=== PATIENT | male | born 1965 | race Caucasian/White ===

== ENCOUNTER 2020-06-05 10:48 | Inpatient (IN) | payer OTHER ==
[~2020-06-05] VITALS: Ht 177.8 cm; Wt 86.8 kg
[2020-06-05] MEDS ORDERED: ETOMIDATE 20 MG/10 ML IVPush ONE (11:00)
[2020-06-05] MEDS ORDERED: SUCCINYLCHOLINE 20 MG/ML, 10ML IVPush ONE (11:00)
[2020-06-05] MEDS ORDERED: SODIUM CHLORIDE 0.9% 1,000ML IVBOLUS ONE (11:00)
[2020-06-05 11:21] LABS: BASOPHILS # (AUTO) 0.08 x10^3/uL (0-0.1); BASOPHILS % (AUTO) 1 % (0-1); EOSINOPHILS # (AUTO) 0.14 x10^3/uL (0-0.4); EOSINOPHILS % (AUTO) 2 % (1-7); LYMPHOCYTES # (AUTO) 4.47 x10^3/uL (1-3.4); LYMPHOCYTES % (AUTO) 49 % (22-44); MD NO; MEAN CORPUSCULAR HEMOGLOBIN 31.8 pg (27.5-34.5); MEAN CORPUSCULAR HGB CONC 33.3 g/dL (33.2-36.2); MEAN CORPUSCULAR VOLUME 95.4 fL (81-97); MEAN PLATELET VOLUME 7.6 fL (7.4-10.4); MONOCYTES # (AUTO) 0.67 x10^3/uL (0.2-0.8); MONOCYTES % (AUTO) 7 % (2-9); NEUTROPHILS # (AUTO) 3.85 x10^3/uL (1.8-6.8); NEUTROPHILS % (AUTO) 42 % (42-75); PLATELET COUNT 336 x10^3/uL (130-400); RED BLOOD COUNT 4.83 x10^6/uL (4.38-5.82); RED CELL DISTRIBUTION WIDTH 14.2 % (9.4-14.8)
[2020-06-05] MEDS ORDERED: PROPOFOL 10 MG/ML, 20ML IVPush ONE (11:30)
[2020-06-05 11:31] LABS: CHLORIDE 108 mmol/L (98-107)
[2020-06-05] MEDS: PROPOFOL 100 ML IV PRN ×4 (11:35→23:14)
[2020-06-05] MEDS ORDERED: DEXAMETHASONE 4 MG/ML, 5ML ONE (11:36)
[2020-06-05 11:45] LABS: ALANINE AMINOTRANSFERASE 83 U/L (12-78); ALBUMIN 3.7 g/dL (3.4-5.0); ALKALINE PHOSPHATASE 91 U/L (45-117); ANION GAP 12 mmol/L (5-15); BILIRUBIN,TOTAL 0.4 mg/dL (0.2-1.0); CREATININE 1.32 mg/dL (0.7-1.3); TOTAL PROTEIN 7.8 g/dL (6.4-8.2)
[2020-06-05] MEDS ORDERED: DEXAMETHASONE 4 MG/ML, 1ML PO ONE (12:00)
[2020-06-05] MEDS ORDERED: LABETALOL 5MG/ML, 20ML IVPush ONE (12:00)
[2020-06-05] MEDS ORDERED: MIDAZOLAM 1 MG/ML, 5ML IVPush ONE (12:00)
[2020-06-05 12:03] LABS: FREE T4 (FREE THYROXINE) 1.38 ng/dL (0.76-1.46)
[2020-06-05] MEDS ORDERED: POTASSIUM CHLORIDE 40 MEQ in SODIUM CHLORIDE 0.9% 500 ML IV ONE (12:15)
--- NOTE | 2020-06-05 12:19 | NUR ---
JOCELYNE BROTHER CALLED. PER BROTHER PT HAS LONG HX OF ETOH ABUSE. EMPTY FOZIA CASTILLO BOTTLES FOUND AT HOUSE. 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 BROTHER IS POINT OF CONTACT FOR FAMILY. NUMBER IS [phone]
--- NOTE | 2020-06-05 12:27 | NUR ---
PER PT BP 145/103 HOLD LABETALOL AT THIS TIME
[2020-06-05] MEDS ORDERED: OMNIPAQUE 350 MG/ML, 100ML BOTTLE ONE (12:58)
--- NOTE | 2020-06-05 13:43 | NUR ---
SEE ATTACHED VITAL SIGNS PRINT OUT FOR VITAL SIGNS Q 5 MIN
--- NOTE | 2020-06-05 13:44 | NUR ---
SUMMARY OF EVENTS. PT PRESENTED TO ER BY OMAR. PT WAS FOUND BY BROTHER SITTING ON THE FLOOR AND HAD APEARED TO HAVE FALLEN AT SOMEPOINT. PT IS NON-VERBAL FOR EMS BUT WILL FOLLOW SOME COMMANDS. DECISION TO INTUBATE WAS MADE BY MD DUE TO AUDIBLE UPPER AIRWAY STRIDOR AND PT INABILITY TO PROTECT OWN AIRWAY. 1119 20 MG OF ETOMITDATE GIVEN IV FOLLOWED BY 100 MG SUCCINOCOLINE. PT INTUBATED AT 1120 7.5 TUBE THAT IS 25 AT LIPS. RT INITIAL SETTINGS OF TV 550, PEEP 5, RR 12, AND FIO2 OF 100%. PT GIVEN 100 MG OF PROPOFOL AT 1130 PER MD VERBAL AND PROPOFOL DRIP INITIATED. SEE IV SPREADSHEET FOR TITRATION. 1141 10 MG OF DECADRON GIVEN IV. PT REMAINS DIFFICULT TO SEDATE AND VERBAL ORDER FOR 5 MG RECIEVED AND GIVEN 1148. PT TAKEN TO CT WITH RT AT SIDE. UPON RETURNING RT TITRATED FIO2 DOWN TO 75%
[2020-06-05 13:53] LABS: MICROSCOPIC NOT IND
[2020-06-05 14:03] LABS: AMPHETAMINE SCREEN, URINE Negative (Negative); BARBITURATE SCREEN, URINE Negative (Negative); BENZODIAZEPINE SCREEN, URINE Negative (Negative); CANNABINOID SCREEN, URINE Negative (Negative); COCAINE SCREEN, URINE Positive (Negative); METHADONE SCREEN, URINE Negative (Negative); OPIATE SCREEN, URINE Negative (Negative)
--- NOTE | 2020-06-05 14:14 | NUR ---
BROTHER CALLED FOR UPDATE. BROTHER HAS BEEN TALKING TO FAMILY AND STATED THIS HAS HAPPENED PREVIOUSLY AND PT WILL LEAVE SOON GIVEN AN OPPORTUNITY.
[2020-06-05] MEDS ORDERED: THIAMINE 100 MG in SODIUM CHLORIDE 0.9% 50 ML IV SCH (15:00)
[2020-06-05] MEDS ORDERED: FOLIC ACID 1 MG TABLET PO SCH (15:00)
[2020-06-05] MEDS ORDERED: POTASSIUM CHLORIDE 10% 40 MEQ/30 ML UDC PO ONE (16:00)
[2020-06-05] MEDS ORDERED: CHLORDIAZEPOXIDE 25 MG CAPSULE PO ONE (16:00)
[2020-06-05] MEDS: MIDAZOLAM 1 MG/ML, 2ML IVPush PRN ×3 (16:16→23:14)
[2020-06-05] MEDS ORDERED: DEXTROSE 4 GM TAB.CHEW PO PRN (16:30)
[2020-06-05] MEDS ORDERED: DEXTROSE 50%, 50ML SYRINGE IVPush PRN (16:30)
[2020-06-05] MEDS ORDERED: GLUCAGON 1 MG IM PRN (16:30)
[2020-06-05] MEDS ORDERED: PHARMACY MAY ADJ FOR RENAL FX MC SCH (16:30)
[2020-06-05 17:13] LABS: AMPHETAMINE SCREEN, URINE Negative (Negative); BARBITURATE SCREEN, URINE Negative (Negative); BENZODIAZEPINE SCREEN, URINE Positive (Negative); CANNABINOID SCREEN, URINE Negative (Negative); COCAINE SCREEN, URINE Positive (Negative); METHADONE SCREEN, URINE Negative (Negative); OPIATE SCREEN, URINE Negative (Negative)
[2020-06-05] MEDS: POTASSIUM CHLORIDE 20 MEQ, MAGNESIUM SULFATE 1 GM, THIAMINE 200 MG, FOLIC ACID 1 MG, MV... IV SCH (18:05)
[2020-06-05] MEDS: ENOXAPARIN 40 MG/0.4 ML SQ SCH (18:05)
[2020-06-05] MEDS: DEXAMETHASONE 4 MG/ML, 1ML IVPush SCH ×2 (18:06→23:14)
[2020-06-05] MEDS ORDERED: METO-290 PO (18:47)
[2020-06-05] MEDS ORDERED: AMLO-150 PO (18:47)
[2020-06-05] MEDS: SODIUM CHLORIDE FLUSH 10ML SYR IVF SCH (19:36)
[2020-06-06] MEDS: MIDAZOLAM 1 MG/ML, 2ML IVPush PRN ×3 (01:52→08:13)
[2020-06-06] MEDS: PROPOFOL 100 ML IV PRN ×7 (02:38→22:31)
[2020-06-06 04:09] VITALS: BP 168/115
[2020-06-06 04:43] LABS: BASOPHILS % (AUTO) 0 % (0-1); EOSINOPHILS % (AUTO) 0 % (1-7); LYMPHOCYTES # (AUTO) 0.36 x10^3/uL (1-3.4); LYMPHOCYTES % (AUTO) 9 % (22-44); MD NO; MEAN CORPUSCULAR HEMOGLOBIN 31.8 pg (27.5-34.5); MEAN CORPUSCULAR HGB CONC 33.1 g/dL (33.2-36.2); MEAN CORPUSCULAR VOLUME 96.3 fL (81-97); MEAN PLATELET VOLUME 7.7 fL (7.4-10.4); MONOCYTES # (AUTO) 0.03 x10^3/uL (0.2-0.8); MONOCYTES % (AUTO) 1 % (2-9); NEUTROPHILS # (AUTO) 3.45 x10^3/uL (1.8-6.8); NEUTROPHILS % (AUTO) 90 % (42-75); PLATELET COUNT 293 x10^3/uL (130-400); RED BLOOD COUNT 4.23 x10^6/uL (4.38-5.82); RED CELL DISTRIBUTION WIDTH 14.3 % (9.4-14.8)
[2020-06-06 04:57] LABS: ANION GAP 13 mmol/L (5-15); CALCIUM 8.1 mg/dL (8.5-10.1); CHLORIDE 115 mmol/L (98-107)
[2020-06-06 05:03] LABS: ALANINE AMINOTRANSFERASE 66 U/L (12-78); ALKALINE PHOSPHATASE 74 U/L (45-117); BILIRUBIN, DIRECT 0.3 mg/dL (0.1-0.2); BILIRUBIN,INDIRECT 0.3 mg/dL (0.0-2.0); BILIRUBIN,TOTAL 0.6 mg/dL (0.2-1.0); CREATININE 1.26 mg/dL (0.7-1.3); TOTAL PROTEIN 6.6 g/dL (6.4-8.2)
[2020-06-06] MEDS: DEXAMETHASONE 4 MG/ML, 1ML IVPush SCH ×2 (05:12→12:28)
[2020-06-06] MEDS ORDERED: CHLORDIAZEPOXIDE 25 MG CAPSULE PO SCH ×2 (08:00)
[2020-06-06] MEDS: SODIUM CHLORIDE FLUSH 10ML SYR IVF SCH ×2 (08:52→21:00)
[2020-06-06] MEDS: PANTOPRAZOLE 40 MG IV IVPush SCH (08:52)
[2020-06-06] MEDS ORDERED: MIDAZOLAM 1 MG/ML, 5ML IVPush ONE (09:00)
[2020-06-06] MEDS ORDERED: hydrALAzine 20 MG/ML, 1ML ONE (10:49)
[2020-06-06] MEDS: MIDAZOLAM HCL 50 MG in SODIUM CHLORIDE 0.9% 40 ML IV PRN ×2 (11:01→22:31)
[2020-06-06] MEDS: hydrALAzine 20 MG/ML, 1ML IV PRN ×2 (11:01→15:14)
--- NOTE | 2020-06-06 14:37 | NUR ---
TF recommendations: Promote ON propofol: 80 ml/hr OFF propofol: 90 ml/hr
[2020-06-06] MEDS: ENOXAPARIN 40 MG/0.4 ML SQ SCH (17:29)
[2020-06-06] MEDS: POTASSIUM CHLORIDE 20 MEQ, MAGNESIUM SULFATE 1 GM, THIAMINE 200 MG, FOLIC ACID 1 MG, MV... IV SCH (17:29)
[2020-06-06] MEDS ORDERED: hydrALAzine 20 MG/ML, 1ML IV ONE (17:30)
[2020-06-06] MEDS ORDERED: NITROGLYCERIN OINT 2%, 1GM TP PRN ×2 (18:00→18:30)
[2020-06-06] MEDS ORDERED: hydrALAzine 20 MG/ML, 1ML IV PRN (18:00)
[2020-06-07] MEDS: hydrALAzine 20 MG/ML, 1ML IV PRN ×5 (02:10→18:38)
[2020-06-07] MEDS: PROPOFOL 100 ML IV PRN ×3 (03:37→19:23)
[2020-06-07 05:02] LABS: BASOPHILS % (AUTO) 0 % (0-1); EOSINOPHILS % (AUTO) 0 % (1-7); LYMPHOCYTES # (AUTO) 0.33 x10^3/uL (1-3.4); LYMPHOCYTES % (AUTO) 3 % (22-44); MD NO; MEAN CORPUSCULAR HEMOGLOBIN 32.1 pg (27.5-34.5); MEAN CORPUSCULAR HGB CONC 33.5 g/dL (33.2-36.2); MONOCYTES # (AUTO) 0.37 x10^3/uL (0.2-0.8); MONOCYTES % (AUTO) 4 % (2-9); NEUTROPHILS # (AUTO) 9.46 x10^3/uL (1.8-6.8); NEUTROPHILS % (AUTO) 93 % (42-75); PLATELET COUNT 236 x10^3/uL (130-400); RED BLOOD COUNT 3.82 x10^6/uL (4.38-5.82); RED CELL DISTRIBUTION WIDTH 14.6 % (9.4-14.8)
[2020-06-07 05:07] LABS: ANION GAP 6 mmol/L (5-15); CALCIUM 8.4 mg/dL (8.5-10.1); CHLORIDE 114 mmol/L (98-107)
[2020-06-07 05:08] LABS: CREATININE 1.23 mg/dL (0.7-1.3)
[2020-06-07 05:37] VITALS: BP 147/96
[2020-06-07] MEDS: PANTOPRAZOLE 40 MG IV IVPush SCH (08:53)
[2020-06-07] MEDS: SODIUM CHLORIDE FLUSH 10ML SYR IVF SCH ×2 (08:54→19:23)
[2020-06-07] MEDS: MIDAZOLAM HCL 50 MG in SODIUM CHLORIDE 0.9% 40 ML IV PRN ×2 (10:32→23:22)
[2020-06-07] MEDS: ENOXAPARIN 40 MG/0.4 ML SQ SCH (16:01)
[2020-06-07] MEDS: POTASSIUM CHLORIDE 20 MEQ, MAGNESIUM SULFATE 1 GM, THIAMINE 200 MG, FOLIC ACID 1 MG, MV... IV SCH (17:56)
[2020-06-07] MEDS: ENALAPRILAT 1.25 MG/ML, 2ML IV PRN (19:23)
[2020-06-07] MEDS: METOPROLOL TARTRATE 50 MG TAB PO SCH (20:13)
[2020-06-08] MEDS: PROPOFOL 100 ML IV PRN ×4 (00:49→21:37)
[2020-06-08 04:00] VITALS: BP 152/104
[2020-06-08] MEDS: hydrALAzine 20 MG/ML, 1ML IV PRN ×3 (04:33→18:05)
[2020-06-08 04:47] LABS: BASOPHILS # (AUTO) 0.03 x10^3/uL (0-0.1); BASOPHILS % (AUTO) 0 % (0-1); EOSINOPHILS # (AUTO) 0.01 x10^3/uL (0-0.4); EOSINOPHILS % (AUTO) 0 % (1-7); LYMPHOCYTES # (AUTO) 1.59 x10^3/uL (1-3.4); LYMPHOCYTES % (AUTO) 17 % (22-44); MD NO; MEAN CORPUSCULAR HEMOGLOBIN 31.5 pg (27.5-34.5); MEAN CORPUSCULAR HGB CONC 32.2 g/dL (33.2-36.2); MEAN CORPUSCULAR VOLUME 97.8 fL (81-97); MEAN PLATELET VOLUME 7.8 fL (7.4-10.4); MONOCYTES # (AUTO) 0.34 x10^3/uL (0.2-0.8); MONOCYTES % (AUTO) 4 % (2-9); NEUTROPHILS # (AUTO) 7.43 x10^3/uL (1.8-6.8); NEUTROPHILS % (AUTO) 79 % (42-75); PLATELET COUNT 214 x10^3/uL (130-400); RED BLOOD COUNT 3.95 x10^6/uL (4.38-5.82); RED CELL DISTRIBUTION WIDTH 14.9 % (9.4-14.8)
[2020-06-08 05:00] LABS: ANION GAP 4 mmol/L (5-15); CALCIUM 8.1 mg/dL (8.5-10.1); CHLORIDE 114 mmol/L (98-107)
[2020-06-08 05:01] LABS: CREATININE 1.01 mg/dL (0.7-1.3); TRIGLYCERIDES 84 mg/dL (50-200)
[2020-06-08] MEDS: ENALAPRILAT 1.25 MG/ML, 2ML IV PRN (05:21)
[2020-06-08] MEDS: METOPROLOL TARTRATE 50 MG TAB PO SCH ×2 (08:00→18:05)
[2020-06-08] MEDS: ENOXAPARIN 30 MG/0.3 ML SQ SCH ×2 (08:49→21:37)
[2020-06-08] MEDS: MIDAZOLAM HCL 50 MG in SODIUM CHLORIDE 0.9% 40 ML IV PRN (08:49)
[2020-06-08] MEDS: PANTOPRAZOLE 40 MG IV IVPush SCH (08:49)
[2020-06-08] MEDS: AMLODIPINE 5 MG TABLET PO SCH (08:50)
[2020-06-08] MEDS: OXYcodone IR 5MG TABLET PO PRN (08:51)
[2020-06-08] MEDS: SODIUM CHLORIDE FLUSH 10ML SYR IVF SCH ×2 (08:52→21:38)
[2020-06-08] MEDS: POTASSIUM CHLORIDE 20 MEQ, MAGNESIUM SULFATE 1 GM, THIAMINE 200 MG, FOLIC ACID 1 MG, MV... IV SCH (18:03)
[2020-06-09] MEDS: METOPROLOL TARTRATE 50 MG TAB PO SCH ×2 (00:30→08:24)
[2020-06-09] MEDS: PROPOFOL 100 ML IV PRN (03:18)
[2020-06-09 04:00] VITALS: BP 150/103
[2020-06-09 04:48] LABS: BASOPHILS # (AUTO) 0.02 x10^3/uL (0-0.1); BASOPHILS % (AUTO) 0 % (0-1); EOSINOPHILS % (AUTO) 1 % (1-7); LYMPHOCYTES # (AUTO) 1.74 x10^3/uL (1-3.4); LYMPHOCYTES % (AUTO) 22 % (22-44); MD NO; MEAN CORPUSCULAR HEMOGLOBIN 31.7 pg (27.5-34.5); MEAN CORPUSCULAR HGB CONC 32.9 g/dL (33.2-36.2); MEAN CORPUSCULAR VOLUME 96.4 fL (81-97); MONOCYTES # (AUTO) 0.38 x10^3/uL (0.2-0.8); MONOCYTES % (AUTO) 5 % (2-9); NEUTROPHILS # (AUTO) 5.83 x10^3/uL (1.8-6.8); NEUTROPHILS % (AUTO) 72 % (42-75); PLATELET COUNT 198 x10^3/uL (130-400); RED BLOOD COUNT 3.95 x10^6/uL (4.38-5.82); RED CELL DISTRIBUTION WIDTH 14.8 % (9.4-14.8)
[2020-06-09] MEDS: hydrALAzine 20 MG/ML, 1ML IV PRN ×2 (04:48→09:59)
[2020-06-09 04:59] LABS: ANION GAP 5 mmol/L (5-15); CALCIUM 8.6 mg/dL (8.5-10.1); CHLORIDE 109 mmol/L (98-107); CREATININE 0.92 mg/dL (0.7-1.3)
[2020-06-09] MEDS: PANTOPRAZOLE 40 MG IV IVPush SCH (08:24)
[2020-06-09] MEDS: ENOXAPARIN 30 MG/0.3 ML SQ SCH ×2 (08:24→21:00)
[2020-06-09] MEDS: AMLODIPINE 5 MG TABLET PO SCH (08:24)
[2020-06-09] MEDS: SODIUM CHLORIDE FLUSH 10ML SYR IVF SCH ×2 (08:25→21:01)
[2020-06-09] MEDS: OXYcodone IR 5MG TABLET PO PRN (10:00)
[2020-06-09] MEDS: POTASSIUM CHLORIDE 20 MEQ, MAGNESIUM SULFATE 1 GM, THIAMINE 200 MG, FOLIC ACID 1 MG, MV... IV SCH (21:00)
[2020-06-09] MEDS: CARVEDILOL 12.5 MG TABLET PO SCH (21:01)
[2020-06-09] MEDS ORDERED: ACETAMINOPHEN 650 MG SUPP PR PRN (23:30)
[2020-06-10 04:00] VITALS: BP 159/88
[2020-06-10 04:35] LABS: O2 FLOW 0 L/min
[2020-06-10 04:45] LABS: ANION GAP 8 mmol/L (5-15); CALCIUM 8.3 mg/dL (8.5-10.1); CHLORIDE 108 mmol/L (98-107); CREATININE 1.08 mg/dL (0.7-1.3); MEAN CORPUSCULAR HGB CONC 33.1 g/dL (33.2-36.2); MEAN CORPUSCULAR VOLUME 96.6 fL (81-97); MEAN PLATELET VOLUME 8.3 fL (7.4-10.4); PLATELET COUNT 212 x10^3/uL (130-400); RED BLOOD COUNT 3.78 x10^6/uL (4.38-5.82); RED CELL DISTRIBUTION WIDTH 13.9 % (9.4-14.8)
[2020-06-10 05:37] LABS: BASOPHILS # (AUTO) 0.02 x10^3/uL (0-0.1); BASOPHILS % (AUTO) 0 % (0-1); EOSINOPHILS # (AUTO) 0.14 x10^3/uL (0-0.4); EOSINOPHILS % (AUTO) 1 % (1-7); LYMPHOCYTES # (AUTO) 1.35 x10^3/uL (1-3.4); LYMPHOCYTES % (AUTO) 12 % (22-44); MD SCAN; MONOCYTES # (AUTO) 0.75 x10^3/uL (0.2-0.8); MONOCYTES % (AUTO) 7 % (2-9); NEUTROPHILS # (AUTO) 8.98 x10^3/uL (1.8-6.8); NEUTROPHILS % (AUTO) 80 % (42-75)
[2020-06-10] MEDS: PANTOPRAZOLE 40 MG IV IVPush SCH (08:12)
[2020-06-10] MEDS: ENOXAPARIN 30 MG/0.3 ML SQ SCH ×2 (08:12→20:53)
[2020-06-10] MEDS: CARVEDILOL 12.5 MG TABLET PO SCH ×2 (11:48→20:53)
[2020-06-10] MEDS: AMLODIPINE 10 MG TAB PO SCH (11:48)
[2020-06-10] MEDS: SODIUM CHLORIDE FLUSH 10ML SYR IVF SCH ×2 (11:48→20:53)
--- NOTE | 2020-06-10 12:16 | NUR ---
D/C rec: acute rehab Addendum: 06/10/20 at [address] Amended: Links added.
[2020-06-10 20:48] VITALS: BP 147/95
[2020-06-10] MEDS: POTASSIUM CHLORIDE 20 MEQ, MAGNESIUM SULFATE 1 GM, THIAMINE 200 MG, FOLIC ACID 1 MG, MV... IV SCH (21:51)
[2020-06-11] VITALS (7 sets, daily range): BP systolic 113–152; BP diastolic 75–97
[2020-06-11 05:09] LABS: ANION GAP 8 mmol/L (5-15); CALCIUM 8.3 mg/dL (8.5-10.1); CHLORIDE 108 mmol/L (98-107); TRIGLYCERIDES 146 mg/dL (50-200)
[2020-06-11] MEDS: CARVEDILOL 12.5 MG TABLET PO SCH ×2 (06:14→18:39)
[2020-06-11 07:24] LABS: BASOPHILS # (AUTO) 0.03 x10^3/uL (0-0.1); BASOPHILS % (AUTO) 0 % (0-1); EOSINOPHILS # (AUTO) 0.16 x10^3/uL (0-0.4); EOSINOPHILS % (AUTO) 2 % (1-7); LYMPHOCYTES # (AUTO) 1.11 x10^3/uL (1-3.4); LYMPHOCYTES % (AUTO) 13 % (22-44); MD NO; MEAN CORPUSCULAR HEMOGLOBIN 32.4 pg (27.5-34.5); MEAN CORPUSCULAR HGB CONC 33.4 g/dL (33.2-36.2); MEAN CORPUSCULAR VOLUME 96.8 fL (81-97); MEAN PLATELET VOLUME 8.4 fL (7.4-10.4); MONOCYTES % (AUTO) 12 % (2-9); NEUTROPHILS # (AUTO) 6.15 x10^3/uL (1.8-6.8); NEUTROPHILS % (AUTO) 73 % (42-75); PLATELET COUNT 187 x10^3/uL (130-400); RED CELL DISTRIBUTION WIDTH 14.1 % (9.4-14.8)
[2020-06-11] MEDS: PANTOPRAZOLE 40 MG IV IVPush SCH (08:25)
[2020-06-11] MEDS: ENOXAPARIN 30 MG/0.3 ML SQ SCH ×2 (08:26→22:28)
[2020-06-11] MEDS: AMLODIPINE 10 MG TAB PO SCH (08:26)
[2020-06-11] MEDS: SODIUM CHLORIDE FLUSH 10ML SYR IVF SCH ×2 (08:26→22:28)
[2020-06-12 04:00] VITALS: BP 132/84
[2020-06-12 05:16] LABS: MEAN CORPUSCULAR HEMOGLOBIN 32.2 pg (27.5-34.5); MEAN CORPUSCULAR HGB CONC 33.7 g/dL (33.2-36.2); MEAN CORPUSCULAR VOLUME 95.4 fL (81-97); MEAN PLATELET VOLUME 8.4 fL (7.4-10.4); PLATELET COUNT 210 x10^3/uL (130-400); RED BLOOD COUNT 3.62 x10^6/uL (4.38-5.82); RED CELL DISTRIBUTION WIDTH 13.4 % (9.4-14.8)
[2020-06-12 05:22] LABS: ANION GAP 9 mmol/L (5-15); CALCIUM 8.3 mg/dL (8.5-10.1); CHLORIDE 105 mmol/L (98-107)
[2020-06-12 05:24] LABS: CREATININE 0.81 mg/dL (0.7-1.3)
[2020-06-12] MEDS: CARVEDILOL 12.5 MG TABLET PO SCH ×2 (05:57→17:57)
[2020-06-12 06:22] LABS: BASOPHILS # (AUTO) 0.02 x10^3/uL (0-0.1); BASOPHILS % (AUTO) 0 % (0-1); EOSINOPHILS # (AUTO) 0.22 x10^3/uL (0-0.4); EOSINOPHILS % (AUTO) 3 % (1-7); LYMPHOCYTES # (AUTO) 1.49 x10^3/uL (1-3.4); LYMPHOCYTES % (AUTO) 20 % (22-44); MD SCAN; MONOCYTES # (AUTO) 1.45 x10^3/uL (0.2-0.8); MONOCYTES % (AUTO) 20 % (2-9); NEUTROPHILS # (AUTO) 4.22 x10^3/uL (1.8-6.8); NEUTROPHILS % (AUTO) 57 % (42-75)
[2020-06-12 08:00] VITALS: BP 125/89
[2020-06-12] MEDS: PANTOPRAZOLE 40 MG IV IVPush SCH (08:56)
[2020-06-12] MEDS: ENOXAPARIN 30 MG/0.3 ML SQ SCH ×2 (08:56→20:12)
[2020-06-12] MEDS: AMLODIPINE 10 MG TAB PO SCH (08:56)
[2020-06-12] MEDS: SODIUM CHLORIDE FLUSH 10ML SYR IVF SCH ×2 (08:57→20:12)
[2020-06-12 13:35] VITALS: BP 129/94
[2020-06-12 13:48] VITALS: BP 128/80
[2020-06-12 18:46] VITALS: BP 131/95
[2020-06-13 00:03] VITALS: BP 128/88
[2020-06-13 04:42] VITALS: BP 136/97
[2020-06-13] MEDS: CARVEDILOL 12.5 MG TABLET PO SCH ×2 (05:00→17:37)
[2020-06-13 06:09] LABS: CHLORIDE 102 mmol/L (98-107)
[2020-06-13 06:13] LABS: ANION GAP 9 mmol/L (5-15); CALCIUM 8.9 mg/dL (8.5-10.1); CREATININE 0.97 mg/dL (0.7-1.3)
[2020-06-13 06:18] LABS: MEAN CORPUSCULAR HEMOGLOBIN 32.1 pg (27.5-34.5); MEAN CORPUSCULAR HGB CONC 33.7 g/dL (33.2-36.2); MEAN CORPUSCULAR VOLUME 95.1 fL (81-97); MEAN PLATELET VOLUME 9.3 fL (7.4-10.4); PLATELET COUNT 273 x10^3/uL (130-400); RED CELL DISTRIBUTION WIDTH 13.4 % (9.4-14.8)
[2020-06-13 06:26] VITALS: BP 113/68
[2020-06-13 06:51] LABS: BASOPHILS # (AUTO) 0.04 x10^3/uL (0-0.1); BASOPHILS % (AUTO) 1 % (0-1); EOSINOPHILS # (AUTO) 0.19 x10^3/uL (0-0.4); EOSINOPHILS % (AUTO) 2 % (1-7); LYMPHOCYTES # (AUTO) 1.46 x10^3/uL (1-3.4); LYMPHOCYTES % (AUTO) 15 % (22-44); MD SCAN; MONOCYTES # (AUTO) 1.86 x10^3/uL (0.2-0.8); MONOCYTES % (AUTO) 20 % (2-9); NEUTROPHILS % (AUTO) 63 % (42-75)
[2020-06-13] MEDS: ENOXAPARIN 30 MG/0.3 ML SQ SCH ×2 (08:11→20:22)
[2020-06-13] MEDS: PANTOPRAZOLE 40 MG IV IVPush SCH (08:11)
[2020-06-13] MEDS: SODIUM CHLORIDE FLUSH 10ML SYR IVF SCH ×2 (08:12→20:22)
[2020-06-13] MEDS: AMLODIPINE 10 MG TAB PO SCH (09:00)
[2020-06-13] MEDS ORDERED: BUDESONIDE 0.5 MG/2 ML INHA INH SCH (09:30)
[2020-06-13] MEDS ORDERED: methylPREDNISolone SOD SUCC 40 MG/ML IV SCH (09:30)
[2020-06-13] MEDS: AMPICILLIN/SULBACTAM 3 GM in SODIUM CHLORIDE 0.9% 100 ML IV SCH ×3 (11:15→23:15)
[2020-06-13] MEDS: FLUTICASONE NASAL SPRAY 16GM NAS SCH ×2 (11:15→20:21)
[2020-06-13 12:13] VITALS: BP 129/86
[2020-06-13] MEDS: D5%-0.45% NACL 1,000 ML IV SCH (15:15)
[2020-06-13 18:45] VITALS: BP 136/89
[2020-06-13] MEDS ORDERED: methylPREDNISolone SOD SUCC 125 MG/2 ML ONE (19:31)
[2020-06-13] MEDS: methylPREDNISolone SOD SUCC 40 MG/ML IV SCH (20:22)
[2020-06-13] MEDS ORDERED: BREO INH SCH (21:00)
[2020-06-14 00:11] VITALS: BP 146/95
[2020-06-14] MEDS: D5%-0.45% NACL 1,000 ML IV SCH ×2 (03:20→16:40)
[2020-06-14 04:12] VITALS: BP 125/91
[2020-06-14] MEDS: AMPICILLIN/SULBACTAM 3 GM in SODIUM CHLORIDE 0.9% 100 ML IV SCH ×4 (05:15→23:00)
[2020-06-14] MEDS: CARVEDILOL 12.5 MG TABLET PO SCH ×2 (06:00→17:10)
[2020-06-14 06:06] LABS: BASOPHILS # (AUTO) 0.01 x10^3/uL (0-0.1); BASOPHILS % (AUTO) 0 % (0-1); EOSINOPHILS % (AUTO) 0 % (1-7); LYMPHOCYTES # (AUTO) 0.58 x10^3/uL (1-3.4); LYMPHOCYTES % (AUTO) 7 % (22-44); MD NO; MEAN CORPUSCULAR HEMOGLOBIN 32.2 pg (27.5-34.5); MEAN CORPUSCULAR HGB CONC 33.9 g/dL (33.2-36.2); MEAN CORPUSCULAR VOLUME 94.7 fL (81-97); MONOCYTES # (AUTO) 0.58 x10^3/uL (0.2-0.8); MONOCYTES % (AUTO) 7 % (2-9); NEUTROPHILS # (AUTO) 7.17 x10^3/uL (1.8-6.8); NEUTROPHILS % (AUTO) 86 % (42-75); PLATELET COUNT 292 x10^3/uL (130-400); RED BLOOD COUNT 3.69 x10^6/uL (4.38-5.82); RED CELL DISTRIBUTION WIDTH 13.3 % (9.4-14.8)
[2020-06-14 06:18] LABS: CHLORIDE 104 mmol/L (98-107)
[2020-06-14 06:40] LABS: ANION GAP 9 mmol/L (5-15); CALCIUM 8.7 mg/dL (8.5-10.1); CREATININE 0.88 mg/dL (0.7-1.3); TRIGLYCERIDES 70 mg/dL (50-200)
[2020-06-14 07:01] VITALS: BP 114/63
[2020-06-14] MEDS: AMLODIPINE 10 MG TAB PO SCH (07:42)
[2020-06-14] MEDS: FLUTICASONE NASAL SPRAY 16GM NAS SCH ×2 (07:50→21:10)
[2020-06-14] MEDS: ENOXAPARIN 30 MG/0.3 ML SQ SCH ×2 (07:50→21:10)
[2020-06-14] MEDS: PANTOPRAZOLE 40 MG IV IVPush SCH (07:50)
[2020-06-14] MEDS: SODIUM CHLORIDE FLUSH 10ML SYR IVF SCH ×2 (07:50→21:11)
[2020-06-14] MEDS: methylPREDNISolone SOD SUCC 40 MG/ML IV SCH ×2 (07:50→21:10)
[2020-06-14 12:12] VITALS: BP 130/75
[2020-06-14 18:31] VITALS: BP 118/88
[2020-06-15 01:17] VITALS: BP 135/88
[2020-06-15 04:46] LABS: BASOPHILS % (AUTO) 0 % (0-1); EOSINOPHILS % (AUTO) 0 % (1-7); LYMPHOCYTES # (AUTO) 0.81 x10^3/uL (1-3.4); LYMPHOCYTES % (AUTO) 9 % (22-44); MD NO; MEAN CORPUSCULAR HEMOGLOBIN 31.4 pg (27.5-34.5); MEAN CORPUSCULAR HGB CONC 32.6 g/dL (33.2-36.2); MEAN CORPUSCULAR VOLUME 96.5 fL (81-97); MEAN PLATELET VOLUME 8.7 fL (7.4-10.4); MONOCYTES # (AUTO) 0.45 x10^3/uL (0.2-0.8); MONOCYTES % (AUTO) 5 % (2-9); NEUTROPHILS # (AUTO) 7.89 x10^3/uL (1.8-6.8); NEUTROPHILS % (AUTO) 86 % (42-75); PLATELET COUNT 338 x10^3/uL (130-400); RED BLOOD COUNT 3.89 x10^6/uL (4.38-5.82); RED CELL DISTRIBUTION WIDTH 13.4 % (9.4-14.8)
[2020-06-15 04:47] LABS: ANION GAP 7 mmol/L (5-15); CALCIUM 8.7 mg/dL (8.5-10.1); CHLORIDE 107 mmol/L (98-107); CREATININE 1.09 mg/dL (0.7-1.3)
[2020-06-15] MEDS: CARVEDILOL 12.5 MG TABLET PO SCH ×2 (05:27→16:25)
[2020-06-15] MEDS: AMPICILLIN/SULBACTAM 3 GM in SODIUM CHLORIDE 0.9% 100 ML IV SCH (05:28)
[2020-06-15 07:09] VITALS: BP 125/86
[2020-06-15 07:55] VITALS: BP 113/81
[2020-06-15] MEDS: FLUTICASONE NASAL SPRAY 16GM NAS SCH ×2 (07:59→19:51)
[2020-06-15] MEDS: ENOXAPARIN 30 MG/0.3 ML SQ SCH ×2 (08:00→19:51)
[2020-06-15] MEDS: AMLODIPINE 10 MG TAB PO SCH (08:01)
[2020-06-15] MEDS: methylPREDNISolone SOD SUCC 40 MG/ML IV SCH (08:02)
[2020-06-15] MEDS: PANTOPRAZOLE 40 MG IV IVPush SCH (08:02)
[2020-06-15] MEDS: SODIUM CHLORIDE FLUSH 10ML SYR IVF SCH ×2 (08:20→19:51)
[2020-06-15] MEDS ORDERED: MEDROL 4MG DOSEPAK PO SCH (10:30)
[2020-06-15] MEDS: AMOXICILLIN/CLAV 875-125MG TABLET PO SCH ×2 (10:30→19:51)
[2020-06-15 12:26] VITALS: BP 119/68
[2020-06-15 18:24] VITALS: BP 124/64
[2020-06-16 01:33] VITALS: BP 144/104
[2020-06-16] MEDS: CARVEDILOL 12.5 MG TABLET PO SCH (04:56)
[2020-06-16 05:29] LABS: BASOPHILS # (AUTO) 0.01 x10^3/uL (0-0.1); BASOPHILS % (AUTO) 0 % (0-1); EOSINOPHILS # (AUTO) 0.03 x10^3/uL (0-0.4); EOSINOPHILS % (AUTO) 0 % (1-7); LYMPHOCYTES # (AUTO) 1.53 x10^3/uL (1-3.4); LYMPHOCYTES % (AUTO) 15 % (22-44); MD NO; MEAN CORPUSCULAR HEMOGLOBIN 32.2 pg (27.5-34.5); MEAN CORPUSCULAR HGB CONC 33.6 g/dL (33.2-36.2); MEAN CORPUSCULAR VOLUME 95.8 fL (81-97); MEAN PLATELET VOLUME 9.2 fL (7.4-10.4); MONOCYTES # (AUTO) 0.64 x10^3/uL (0.2-0.8); MONOCYTES % (AUTO) 6 % (2-9); NEUTROPHILS # (AUTO) 7.87 x10^3/uL (1.8-6.8); NEUTROPHILS % (AUTO) 78 % (42-75); PLATELET COUNT 314 x10^3/uL (130-400); RED BLOOD COUNT 3.64 x10^6/uL (4.38-5.82); RED CELL DISTRIBUTION WIDTH 13.4 % (9.4-14.8)
[2020-06-16 05:43] LABS: ANION GAP 5 mmol/L (5-15); CALCIUM 8.5 mg/dL (8.5-10.1); CHLORIDE 107 mmol/L (98-107); CREATININE 0.99 mg/dL (0.7-1.3)
[2020-06-16 07:33] VITALS: BP 146/99
[2020-06-16] MEDS: PANTOPRAZOLE 40 MG IV IVPush SCH (08:27)
[2020-06-16] MEDS: ENOXAPARIN 30 MG/0.3 ML SQ SCH (08:34)
[2020-06-16] MEDS: FLUTICASONE NASAL SPRAY 16GM NAS SCH (08:34)
[2020-06-16] MEDS: AMOXICILLIN/CLAV 875-125MG TABLET PO SCH (08:34)
[2020-06-16] MEDS: AMLODIPINE 10 MG TAB PO SCH (08:34)
[2020-06-16] MEDS: SODIUM CHLORIDE FLUSH 10ML SYR IVF SCH (09:00)
[2020-06-16] MEDS ORDERED: METH4TAB2 PO (10:38)
[2020-06-16] MEDS ORDERED: AMOX1TAB12 PO (10:38)
== END 2020-06-16 13:10 | disposition home or self-care (01) | DRG 91 ==
LOC: ED 12:17 → SUATTDRO 13:28 → EDIP 13:34 → ICU 14:44 → 4EST 06-12 13:20
PROVIDERS: ADMIT Internal Medicine; ATTEND Hospitalist
PROC: 5A1955Z Respiratory Ventilation, Greater than 96 Consecutive Hours (ICD-10-PCS; principal; 2020-06-05)
PROC: 0BH17EZ Insertion of Endotracheal Airway into Trachea, Via Natural or Artificial Opening (ICD-10-PCS; 2020-06-05)
PROC: 0T9B70Z Drainage of Bladder with Drainage Device, Via Natural or Artificial Opening (ICD-10-PCS; 2020-06-05)
DX: G92 Toxic encephalopathy (principal); J96.01 Acute respiratory failure with hypoxia; U07.1 COVID-19; E87.2 Acidosis; F10.239 Alcohol dependence with withdrawal, unspecified; J98.11 Atelectasis; Z99.11 Dependence on respirator [ventilator] status; E83.51 Hypocalcemia; E87.6 Hypokalemia; F14.10 Cocaine abuse, uncomplicated; I10 Essential (primary) hypertension; I45.10 Unspecified right bundle-branch block; J32.0 Chronic maxillary sinusitis; R13.10 Dysphagia, unspecified; K70.9 Alcoholic liver disease, unspecified; Z82.49 Family history of ischemic heart disease and other diseases of the circulatory system; Z86.73 Personal history of transient ischemic attack (TIA), and cerebral infarction without residual deficits
CPT/HCPCS: 36415; 36600; 70450; 70491; 71045; 74018; 80048; 80053; 80076; 80307; 81003; 82803; 83735; 84100; 84439; 84443; 84478; 85025; 87070; 87081; 87205; 87635; 93005; 94002; 94003; 94150; 96374; 96375; 99285; G0378; J0295; J1100; J1650; J2250; J2704; J3411; J3475; J3480; J7509; J7626; Q9967; C9113; J0330; J0360; J2920; J7030; J7040